=== PATIENT | male | born 1970 | race Caucasian/White ===

== ENCOUNTER → 2017-10-24 | Outpatient (CLI) | payer OTHER ==
[~2017-10-24] MED LIST: AMLODIPINE BES2.5 M1 PO; COLACE100 MG PO; FLA5PM IV; GAS RELIEF 8080 MG PO; GLUCOPHAGE XR500 MG; HYDROCHLOROTH12.5 M2 PO; HYDROCHLOROTHIA25 MG PO; LEVAQUIN750 MG/150 IV; LISINOPRIL1 PO1 PO; LISINOPRIL10 MG PO; METFORMIN HCL750 MG PO; METFORMIN HCL850 MG PO; NORCO1 TA2 PO; OMEPRAZOLE DR20 M1 PO; PRILOSEC2.5 MG/Pa1; PRINIVIL20 MG PO; PROT40I IV; UNA1I IV; ZOFRAN ODT4 MG SL
[2017-10-24 08:05] LABS: ALKALINE PHOSPHATASE 44 U/L (46-116); ALT/SGPT 91 U/L (16-63); AST/SGOT 51 U/L (15-37); BILIRUBIN TOTAL 0.66 mg/dL (0.20-1.00); CALCIUM 9.5 mg/dL (8.5-10.1); CARBON DIOXIDE 32.4 mmol/L (21-32); CHLORIDE SERUM 98 mmol/L (98-107); CREATININE SERUM 1.2 mg/dL (0.7-1.3); GFR1 > 60 mL/min; GLUCOSE SERUM 195 mg/dL (74-106); HDL CHOLESTEROL 45 mg/dL (40-60); SODIUM SERUM 138 mmol/L (136-145); TOTAL PROTEIN, SERUM 7.3 g/dL (6.4-8.2)
[2017-10-24 08:08] LABS: CHOLESTEROL 220 mg/dL (<200); CHOLESTEROL/HDL RATIO 4.9; TRIGLYCERIDES 483 mg/dL (<150)
[2017-10-24 08:41] LABS: BASOPHIL % 0.5 % (0-2); RED CELL DISTRIBUTION WIDTH 13.4 % (11.5-14.5)
[2017-10-24 08:53] LABS: PLATELET COUNT 115 x10^3mcL (130-400)
[2017-10-25 13:46] LABS: microalbumin:creatinine ratio 16.4 (0.0-30.0)
== END | disposition home or self-care (01) ==
LOC: LB 07:06
PROVIDERS: Family Medicine
DX: Z00.00 Encounter for general adult medical examination without abnormal findings (principal)

== ENCOUNTER → 2018-06-23 | Outpatient (CLI) | payer OTHER ==
[2018-06-23 07:24] LABS: microscopic required? NO
[2018-06-23 07:33] LABS: BASOPHIL % 0.4 % (0-2); RED CELL DISTRIBUTION WIDTH 13.6 % (11.5-14.5); urine erythrocyte NEGATIVE (NEGATIVE)
[2018-06-23 08:15] LABS: ALBUMIN 4.2 g/dL (3.4-5.0); ALKALINE PHOSPHATASE 48 U/L (46-116); ALT/SGPT 77 U/L (16-63); AST/SGOT 52 U/L (15-37); BILIRUBIN TOTAL 0.65 mg/dL (0.20-1.00); CALCIUM 9.5 mg/dL (8.5-10.1); CARBON DIOXIDE 30.7 mmol/L (21-32); CHLORIDE SERUM 97 mmol/L (98-107); CREATININE SERUM 1.3 mg/dL (0.7-1.3); FREE T4 1.07 ng/dL (0.76-1.46); GFR1 > 60 mL/min; GLUCOSE SERUM 193 mg/dL (74-106); HDL CHOLESTEROL 42 mg/dL (40-60); POTASSIUM SERUM 3.8 mmol/L (3.5-5.1); SODIUM SERUM 133 mmol/L (136-145); TOTAL PROTEIN, SERUM 7.6 g/dL (6.4-8.2)
[2018-06-23 08:28] LABS: CHOLESTEROL 218 mg/dL (<200); CHOLESTEROL/HDL RATIO 5.2; TRIGLYCERIDES 459 mg/dL (<150)
[2018-06-23 08:36] LABS: PLATELET COUNT 119 x10^3mcL (130-400)
[2018-06-24 08:52] LABS: VITAMIN D 25-HYDROXY 15.3 ng/mL (30.0-100.0); microalbumin:creatinine ratio 10.2 (0.0-30.0)
== END | disposition home or self-care (01) ==
LOC: LB 06:59
DX: E11.9 Type 2 diabetes mellitus without complications (principal)
CPT/HCPCS: 84439

== ENCOUNTER → 2018-11-16 | Outpatient (CLI) | payer OTHER ==
[2018-11-16 09:01] LABS: BASOPHIL % 0.6 % (0-2); PLATELET COUNT 117 x10^3mcL (130-400); RED CELL DISTRIBUTION WIDTH 13.3 % (11.5-14.5)
[2018-11-16 10:53] LABS: ALBUMIN 4.2 g/dL (3.4-5.0); ALKALINE PHOSPHATASE 48 U/L (46-116); ALT/SGPT 49 U/L (16-63); AST/SGOT 25 U/L (15-37); BILIRUBIN TOTAL 0.5 mg/dL (0.20-1.00); CALCIUM 9.1 mg/dL (8.5-10.1); CARBON DIOXIDE 29.6 mmol/L (21-32); CHLORIDE SERUM 96 mmol/L (98-107); CHOLESTEROL 137 mg/dL (<200); CHOLESTEROL/HDL RATIO 3.3; CREATININE SERUM 1.3 mg/dL (0.7-1.3); GFR1 > 60 mL/min; GLUCOSE SERUM 236 mg/dL (74-106); HDL CHOLESTEROL 41 mg/dL (40-60); POTASSIUM SERUM 3.9 mmol/L (3.5-5.1); SODIUM SERUM 132 mmol/L (136-145); TOTAL PROTEIN, SERUM 7.3 g/dL (6.4-8.2)
[2018-11-16 11:18] LABS: TRIGLYCERIDES 252 mg/dL (<150)
== END | disposition home or self-care (01) ==
LOC: LB 08:02
PROVIDERS: Family Medicine
DX: E11.9 Type 2 diabetes mellitus without complications (principal); E78.5 Hyperlipidemia, unspecified; I10 Essential (primary) hypertension; E55.9 Vitamin D deficiency, unspecified

== ENCOUNTER 2018-12-14 07:12 | Emergency (ER) | payer OTHER ==
[~2018-12-14] VITALS: Ht 188 cm; Wt 108.0 kg
[2018-12-14 07:20] VITALS: Ht 188 cm; Wt 108.0 kg
[2018-12-14 09:53] VITALS: BP 111/71
== END 2018-12-14 09:53 | disposition home or self-care (01) ==
LOC: ED 07:12
DX: J98.01 Acute bronchospasm (principal); E11.9 Type 2 diabetes mellitus without complications; I10 Essential (primary) hypertension; E78.00 Pure hypercholesterolemia, unspecified; E78.5 Hyperlipidemia, unspecified; Z90.89 Acquired absence of other organs; Z98.890 Other specified postprocedural states
CPT/HCPCS: 82962; J7510; J7613; J7644

== ENCOUNTER → 2019-03-04 | Outpatient (CLI) | payer OTHER ==
[2019-03-04 08:19] LABS: microscopic required? NO
[2019-03-04 08:44] LABS: ALBUMIN 4.1 g/dL (3.4-5.0); ALKALINE PHOSPHATASE 48 U/L (46-116); ALT/SGPT 45 U/L (16-63); AST/SGOT 28 U/L (15-37); BILIRUBIN TOTAL 0.63 mg/dL (0.20-1.00); CALCIUM 9.5 mg/dL (8.5-10.1); CARBON DIOXIDE 31.8 mmol/L (21-32); CHLORIDE SERUM 96 mmol/L (98-107); CHOLESTEROL 153 mg/dL (<200); CHOLESTEROL/HDL RATIO 3.3; CREATININE SERUM 1.2 mg/dL (0.7-1.3); GFR1 > 60 mL/min; GLUCOSE SERUM 231 mg/dL (74-106); HDL CHOLESTEROL 47 mg/dL (40-60); SODIUM SERUM 136 mmol/L (136-145); TOTAL PROTEIN, SERUM 7.5 g/dL (6.4-8.2)
[2019-03-04 08:50] LABS: BASOPHIL % 0.3 % (0-2); RED CELL DISTRIBUTION WIDTH 13.4 % (11.5-14.5); TRIGLYCERIDES 254 mg/dL (<150)
[2019-03-04 08:51] LABS: PLATELET COUNT 127 x10^3mcL (130-400)
[2019-03-04 10:53] LABS: urine erythrocyte NEGATIVE (NEGATIVE)
[2019-03-05 10:05] LABS: microalbumin:creatinine ratio 40.6 (0.0-30.0)
== END | disposition home or self-care (01) ==
LOC: LB 07:52
PROVIDERS: Family Medicine
DX: E11.9 Type 2 diabetes mellitus without complications (principal)

== ENCOUNTER → 2019-08-04 | Outpatient (CLI) | payer OTHER ==
[2019-08-04 08:24] LABS: BASOPHIL % 0.7 % (0-2); PLATELET COUNT 121 x10^3mcL (130-400); RED CELL DISTRIBUTION WIDTH 14.1 % (11.5-14.5)
[2019-08-04 08:57] LABS: ALBUMIN 4.2 g/dL (3.4-5.0); ALKALINE PHOSPHATASE 49 U/L (46-116); ALT/SGPT 36 U/L (16-63); AST/SGOT 27 U/L (15-37); BILIRUBIN TOTAL 0.8 mg/dL (0.20-1.00); CALCIUM 9.2 mg/dL (8.5-10.1); CARBON DIOXIDE 31.5 mmol/L (21-32); CHLORIDE SERUM 100 mmol/L (98-107); CHOLESTEROL 143 mg/dL (<200); CHOLESTEROL/HDL RATIO 3.6; CREATININE SERUM 1.3 mg/dL (0.7-1.3); GFR1 > 60 mL/min; GLUCOSE SERUM 139 mg/dL (74-106); HDL CHOLESTEROL 40 mg/dL (40-60); SODIUM SERUM 138 mmol/L (136-145); TOTAL PROTEIN, SERUM 7.4 g/dL (6.4-8.2)
[2019-08-04 09:16] LABS: TRIGLYCERIDES 275 mg/dL (<150)
[2019-08-05 13:10] LABS: microalbumin:creatinine ratio < 3.9 (0.0-30.0)
== END | disposition home or self-care (01) ==
LOC: LB 08:05
DX: E11.65 Type 2 diabetes mellitus with hyperglycemia (principal); E78.2 Mixed hyperlipidemia; E55.9 Vitamin D deficiency, unspecified; I10 Essential (primary) hypertension; E66.09 Other obesity due to excess calories

== ENCOUNTER → 2019-12-01 | Outpatient (CLI) | payer OTHER ==
[2019-12-01 08:49] LABS: BASOPHIL % 0.4 % (0-2); RED CELL DISTRIBUTION WIDTH 14.2 % (11.5-14.5)
[2019-12-01 09:08] LABS: PLATELET COUNT 115 x10^3mcL (130-400)
[2019-12-01 09:34] LABS: ALBUMIN 4.3 g/dL (3.4-5.0); ALKALINE PHOSPHATASE 43 U/L (46-116); ALT/SGPT 46 U/L (16-63); AST/SGOT 26 U/L (15-37); BILIRUBIN TOTAL 0.8 mg/dL (0.20-1.00); CALCIUM 9.7 mg/dL (8.5-10.1); CARBON DIOXIDE 27.1 mmol/L (21-32); CHLORIDE SERUM 102 mmol/L (98-107); CHOLESTEROL 136 mg/dL (<200); CHOLESTEROL/HDL RATIO 3.5; CREATININE SERUM 1.2 mg/dL (0.7-1.3); GFR1 > 60 mL/min; GLUCOSE SERUM 137 mg/dL (74-106); HDL CHOLESTEROL 39 mg/dL (40-60); POTASSIUM SERUM 4.5 mmol/L (3.5-5.1); SODIUM SERUM 139 mmol/L (136-145); TOTAL PROTEIN, SERUM 7.5 g/dL (6.4-8.2)
[2019-12-01 09:35] LABS: TRIGLYCERIDES 225 mg/dL (<150)
== END | disposition home or self-care (01) ==
LOC: LB 08:19
DX: E11.9 Type 2 diabetes mellitus without complications (principal); I10 Essential (primary) hypertension; E78.2 Mixed hyperlipidemia

== ENCOUNTER 2020-01-26 12:11 | Emergency (ER) | payer OTHER ==
[~2020-01-26] VITALS: Ht 188 cm; Wt 108.9 kg
[2020-01-26 12:21] VITALS: Ht 188 cm; Wt 108.9 kg
[2020-01-26 14:50] VITALS: BP 137/75
== END 2020-01-26 14:50 | disposition home or self-care (01) ==
LOC: ED 12:11
DX: M51.36 Other intervertebral disc degeneration, lumbar region (principal); E11.9 Type 2 diabetes mellitus without complications; I10 Essential (primary) hypertension; E78.00 Pure hypercholesterolemia, unspecified; E78.5 Hyperlipidemia, unspecified; Z90.89 Acquired absence of other organs; Z98.890 Other specified postprocedural states
CPT/HCPCS: J1100; J1885

== ENCOUNTER 2020-04-25 08:25 | Emergency (ER) | payer OTHER ==
[~2020-04-25] VITALS: Ht 188 cm; Wt 108.9 kg
[2020-04-25 08:33] VITALS: Ht 188 cm; Wt 108.9 kg
[2020-04-25 09:16] LABS: CALCIUM 9.9 mg/dL (8.5-10.1); CARBON DIOXIDE 27.7 mmol/L (21-32); CHLORIDE SERUM 99 mmol/L (98-107); CREATININE SERUM 1.3 mg/dL (0.7-1.3); GFR1 > 60 mL/min; GLUCOSE SERUM 185 mg/dL (74-106); POTASSIUM SERUM 4.2 mmol/L (3.5-5.1); SODIUM SERUM 137 mmol/L (136-145)
[2020-04-25 09:21] LABS: ALBUMIN 4.3 g/dL (3.4-5.0); ALKALINE PHOSPHATASE 53 U/L (46-116); ALT/SGPT 39 U/L (16-63); AST/SGOT 24 U/L (15-37); BILIRUBIN TOTAL 1.02 mg/dL (0.20-1.00); TOTAL PROTEIN, SERUM 7.8 g/dL (6.4-8.2)
[2020-04-25 09:55] LABS: BASOPHIL % 0.3 % (0-2); RED CELL DISTRIBUTION WIDTH 13.8 % (11.5-14.5)
[2020-04-25 09:56] LABS: PLATELET COUNT 108 x10^3mcL (130-400)
[2020-04-25 11:37] VITALS: BP 118/61
== END 2020-04-25 11:37 | disposition home or self-care (01) ==
LOC: ED 08:25
PROVIDERS: Emergency Medicine
DX: L03.116 Cellulitis of left lower limb (principal); E11.65 Type 2 diabetes mellitus with hyperglycemia; I10 Essential (primary) hypertension; E11.9 Type 2 diabetes mellitus without complications; E78.5 Hyperlipidemia, unspecified; Z90.89 Acquired absence of other organs; Z98.890 Other specified postprocedural states
CPT/HCPCS: J0696; J7060; Q0092

== ENCOUNTER → 2020-06-01 | Outpatient (CLI) | payer OTHER ==
[2020-06-01 08:38] LABS: BASOPHIL % 0.4 % (0-2); RED CELL DISTRIBUTION WIDTH 14.4 % (11.5-14.5)
[2020-06-01 08:54] LABS: ALBUMIN 4.5 g/dL (3.4-5.0); ALKALINE PHOSPHATASE 41 U/L (46-116); ALT/SGPT 36 U/L (16-63); AST/SGOT 29 U/L (15-37); BILIRUBIN TOTAL 0.8 mg/dL (0.20-1.00); CALCIUM 9.2 mg/dL (8.5-10.1); CARBON DIOXIDE 31.7 mmol/L (21-32); CHLORIDE SERUM 100 mmol/L (98-107); CREATININE SERUM 1.2 mg/dL (0.7-1.3); GFR1 > 60 mL/min; GLUCOSE SERUM 142 mg/dL (74-106); HDL CHOLESTEROL 41 mg/dL (40-60); SODIUM SERUM 138 mmol/L (136-145); TOTAL PROTEIN, SERUM 7.5 g/dL (6.4-8.2)
[2020-06-01 08:55] LABS: CHOLESTEROL 129 mg/dL (<200); CHOLESTEROL/HDL RATIO 3.1; PLATELET COUNT 108 x10^3mcL (130-400); TRIGLYCERIDES 216 mg/dL (<150)
== END | disposition home or self-care (01) ==
LOC: LB 08:11
DX: E11.9 Type 2 diabetes mellitus without complications (principal); E66.09 Other obesity due to excess calories; I10 Essential (primary) hypertension; E78.2 Mixed hyperlipidemia

== ENCOUNTER → 2020-12-05 | Outpatient (CLI) | payer OTHER ==
[2020-12-05 11:35] LABS: ALBUMIN 4.2 g/dL (3.4-5.0); ALKALINE PHOSPHATASE 41 U/L (46-116); ALT/SGPT 41 U/L (16-63); AST/SGOT 25 U/L (15-37); BILIRUBIN TOTAL 0.94 mg/dL (0.20-1.00); CALCIUM 9.2 mg/dL (8.5-10.1); CARBON DIOXIDE 30.5 mmol/L (21-32); CHLORIDE SERUM 100 mmol/L (98-107); CHOLESTEROL 138 mg/dL (<200); CHOLESTEROL/HDL RATIO 3.1; CREATININE SERUM 1.2 mg/dL (0.7-1.3); GFR1 > 60 mL/min; GLUCOSE SERUM 134 mg/dL (74-106); HDL CHOLESTEROL 45 mg/dL (40-60); POTASSIUM SERUM 3.9 mmol/L (3.5-5.1); SODIUM SERUM 136 mmol/L (136-145)
[2020-12-05 11:36] LABS: TRIGLYCERIDES 291 mg/dL (<150)
[2020-12-05 13:10] LABS: RED CELL DISTRIBUTION WIDTH 13.7 % (12.1-16.2)
[2020-12-05 13:14] LABS: BASOPHIL % 0.9 % (0.2-1.5)
[2020-12-05 13:15] LABS: PLATELET COUNT 111 x10^3mcL (152-348)
[2020-12-06 10:05] LABS: microalbumin:creatinine ratio < 4 (0-29)
== END | disposition home or self-care (01) ==
LOC: LB 10:35
DX: E11.9 Type 2 diabetes mellitus without complications (principal); E66.09 Other obesity due to excess calories; I10 Essential (primary) hypertension; E78.2 Mixed hyperlipidemia